=== PATIENT | male | born 1980 | race Caucasian/White ===

== ENCOUNTER 2021-02-07 07:41 | Emergency (ER) | payer OTHER ==
[~2021-02-07] VITALS: Ht 182.9 cm; Wt 88.5 kg
[~2021-02-07 07:41] MED LIST: BACTRIM DS TAB1 EACH PO; CIPROFLOXIN HC2.5 M1 OPHTHALMIC; FLEXERIL PO; HYDROCODONE-AP1 EAC6 PO; IBUPROFEN 800800 M1 PO; MEDROLDOSEPACK PO; NAPROSYN500 MG PO; NOHOMEMEDICATIONS; NORCO 5-325 TA1 EACH PO; ZOFRAN ODT4 MG PO
[2021-02-07] MEDS ORDERED: ANTIBIOTICS (07:52)
[2021-02-07] MEDS ORDERED: NORCO5 PO (08:28)
[2021-02-07 08:41] VITALS: BP 147/92
== END 2021-02-07 08:42 | disposition home or self-care (01) ==
LOC: M.ERS 07:41
DX: L05.01 Pilonidal cyst with abscess (principal)